=== PATIENT | female | born 1950 | race Two or more races ===

== ENCOUNTER 2024-07-12 10:33 | Emergency (ER) | payer MEDICAID, OTHER ==
[~2024-07-12] VITALS: Ht 162.6 cm; Wt 77.1 kg
[2024-07-12] MEDS ORDERED: KETOROLAC TROMETHAMINE 30 MG INJ ONE (10:58)
[2024-07-12] MEDS ORDERED: diphenhydrAMINE 50 MG/1 ML VIAL ONE (10:58)
[2024-07-12] MEDS ORDERED: METOCLOPRAMIDE HCL 10 MG/2 ML VIAL ONE (10:59)
[2024-07-12] MEDS: KETOROLAC TROMETHAMINE 30 MG INJ IVP ONE (11:07)
[2024-07-12] MEDS: IV NS 1000 ML 1,000 ML IV ONE (11:08)
[2024-07-12] MEDS: METOCLOPRAMIDE HCL 10 MG/2 ML VIAL IV ONE (11:08)
[2024-07-12] MEDS: diphenhydrAMINE 50 MG/1 ML VIAL IV ONE (11:14)
[2024-07-12] MEDS ORDERED: DIPH25CA83 PO (13:26)
[2024-07-12] MEDS ORDERED: NAPR500T6 PO (13:26)
[2024-07-12] MEDS ORDERED: METO-295 PO (13:26)
[2024-07-12 13:35] VITALS: BP 147/88; O2SAT 98
== END 2024-07-12 14:53 | disposition home or self-care (01) ==
LOC: ER 10:33
DX: G43.909 Migraine, unspecified, not intractable, without status migrainosus (principal); E11.9 Type 2 diabetes mellitus without complications; I10 Essential (primary) hypertension
CPT/HCPCS: 99284; 96374; 96375; 96361; J1885; J1200; J2765; J7040; A4606; A4663